=== PATIENT | male | born 1990 | race African-American/Black ===

== ENCOUNTER 2016-08-19 03:56 | Emergency (ER) | payer OTHER ==
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
[2016-08-19 03:26] LABS: BASOPHIL% 0.7 % (0-2.5); EOSINOPHIL# 0.1 X10e3 (0-0.7); EOSINOPHIL% 1.3 % (0.0-7.0); HEMATOCRIT 42.4 % (38.0-50.0); HEMOGLOBIN 13.6 gm/dL (13.0-16.0); MEAN CELL VOLUME 74.2 FL (83-96); MEAN CORPUSCULAR HEMOGLOBIN 23.8 PG (28-34); MEAN PLATELET VOLUME 8.5 FL (6.5-11.5); MONOCYTE# 0.3 X10e3 (0-1.0); MONOCYTE% 4.8 % (3.0-12.0); NEUTROPHIL# 4.4 X10e3 (1.5-7.1); NEUTROPHIL% 75.2 % (40-75); PLATELET COUNT 174 X10e3 (140-420); RED BLOOD COUNT 5.71 X10e (3.90-5.60); WHITE BLOOD COUNT 5.8 X10e3 (4.0-10.5)
[2016-08-19 03:27] LABS: DIFF IND NO
[2016-08-19 03:56] LABS: ALBUMIN SERUM 4.4 g/dL (3.5-5.0); BILIRUBIN, DIRECT 0.1 mg/dL (0.0-0.2); BILIRUBIN,INDIRECT 0.3 mg/dL (0.0-0.9); BILIRUBIN,TOTAL 0.4 mg/dL (0.2-2.0); CALCIUM SERUM 8.4 mg/dL (8.4-10.2); CREATININE SERUM 1.1 mg/dL (0.6-1.4); GLOM FILT RATE Estimated 106.8 mL/min (>60); POTASSIUM 3.2 mmol/L (3.5-5.1); PROTEIN TOTAL SERUM 6.9 g/dL (6.0-8.3)
[~2016-08-19 03:56] MED LIST: BENTYL20 MG PO; NO MEDICATIONS
[2016-08-19 04:31] LABS: URINE APPEARANCE CLEAR; URINE BILIRUBIN NEG (NEG); URINE BLOOD NEG (NEG); URINE COLOR YELLOW; URINE GLUCOSE NEG (NEG); URINE KETONE 1+ (NEG); URINE LEUKOCYTE ESTERASE NEG (NEG); URINE NITRATE NEG (NEG); URINE PH 6.5 (5-8); URINE PROTEIN NEG (NEG); URINE SPECIFIC GRAVITY 1.011 (1.003-1.035)
[2016-08-19 04:34] LABS: CULTURE INDICATED? NO
== END 2016-08-19 05:15 | disposition home or self-care (01) ==
LOC: CED 03:56
PROVIDERS: Nurse Practitioner Family
DX: R10.84 Generalized abdominal pain (principal); Z98.890 Other specified postprocedural states; Z88.1 Allergy status to other antibiotic agents
CPT/HCPCS: 36415; 74177; 80048; 80076; 81003; 82150; 83690; 85025; 99284; Q9967

== ENCOUNTER 2016-11-19 01:33 | Emergency (ER) | payer OTHER ==
[~2016-11-19] VITALS: Ht 193 cm; Wt 81.6 kg
== END 2016-11-19 05:40 | disposition home or self-care (01) ==
LOC: CED 01:33
DX: S01.112A Laceration without foreign body of left eyelid and periocular area, initial encounter (principal); Z88.0 Allergy status to penicillin; W20.8XXA Other cause of strike by thrown, projected or falling object, initial encounter; Y93.67 Activity, basketball; Y92.39 Other specified sports and athletic area as the place of occurrence of the external cause; Z23 Encounter for immunization
CPT/HCPCS: 12011; 90471; 90715; 99283

== ENCOUNTER 2016-12-01 02:57 | Emergency (ER) | payer OTHER ==
[~2016-12-01] VITALS: Ht 193 cm; Wt 99.8 kg
== END 2016-12-01 03:50 | disposition home or self-care (01) ==
LOC: CED 02:57
DX: S01.81XD Laceration without foreign body of other part of head, subsequent encounter (principal); Z88.0 Allergy status to penicillin
CPT/HCPCS: 99281